=== PATIENT | female | born 1990 | race American Indian/Alaskan Native ===

== ENCOUNTER 2018-11-08 19:53 | Emergency (ER) | payer OTHER ==
--- NOTE | 2018-11-08 21:01 | Emergency Department Report ---
Chief Complaint: Chest Pain Stated Complaint: CHEST PAIN DIFFICULTY SWALLOWING Time Seen by Provider: 11/08/18 20:58 - HPI History of Present Illness: pt presents with right sided CP that began a couple of weeks ago describes it as a sharp pain no N/V mild SOB states she has been belching more no cough states she has also had difficulty in swallowing for several days having no difficulty swallowing secretions speaking with no difficulty denies sore throat no fever denies hx of GERD no PMHx no daily meds former smoker quit a couple months ago non drinker no drug use MSE screening note: Focused history and physical exam performed. Due to findings the following was ordered: CXR, EKG ED Disposition for MSE Condition: Stable
[2018-11-08 21:06] VITALS: BP 134/93
--- NOTE | 2018-11-08 21:48 | XRay Report ---
PROCEDURE: XR CHEST ROUTINE 2V TECHNIQUE: Chest 2 views HISTORY: CP COMPARISONS: FINDINGS: w cardiac and mediastinal contours are unremarkable. No focal pulmonary infiltrate identified. No ple ural fluid collections seen. Pulmonary vasculature is unremarkable. IMPRESSION: Negative two-view chest. This document is electronically signed by Duncan Garcia MD., November 08 2018 09:46:42 PM ET
[2018-11-09] MEDS ORDERED: IBUPROFEN PO ONE (00:43)
[2018-11-09] MEDS ORDERED: ZITHROMAX PO ONE (00:43)
[2018-11-09] MEDS ORDERED: DECADRON IM ONE (00:43)
--- NOTE | 2018-11-09 01:56 | Emergency Department Report ---
ED General Adult HPI - General Chief complaint: Chest Pain Stated complaint: CHEST PAIN DIFFICULTY SWALLOWING Time Seen by Provider: 11/08/18 20:58 Source: patient Mode of arrival: Ambulatory Limitations: No Limitations - History of Present Illness -: Gradual Time: 01:00 Location: buttocks Radiation: non-radiation Severity scale (0 -10): 2 Quality: aching Consistency: constant Improves with: none Worsens with: none Treatments Prior to Arrival: none - Related Data Previous Rx's Medication Instructions Recorded Last Taken Type Ibuprofen 800 mg PO TID PRN #30 tablet 11/09/18 Unknown Rx guaiFENesin [Robitussin] 200 mg PO BID #24 udc 11/09/18 Unknown Rx guaiFENesin [Robitussin] 200 mg PO Q6HR #30 tablet 11/09/18 Unknown Rx Allergies Allergy/AdvReac Type Severity Reaction Status Date / Time cefaclor [From [facility], 1928–1983] Allergy Hives Verified 11/08/18 19:57 ED Review of Systems ROS: Stated complaint: CHEST PAIN DIFFICULTY SWALLOWING Other details as noted in HPI Constitutional: denies: chills, fever Eyes: denies: eye pain, eye discharge, vision change ENT: denies: ear pain, throat pain Respiratory: denies: cough, shortness of breath, wheezing Cardiovascular: denies: chest pain, palpitations Endocrine: no symptoms reported Gastrointestinal: denies: abdominal pain, nausea, diarrhea Genitourinary: denies: urgency, dysuria, discharge Musculoskeletal: denies: back pain, joint swelling, arthralgia Skin: denies: rash, lesions Neurological: denies: headache, weakness, numbness, paresthesias, confusion, abnormal gait, vertigo Psychiatric: suicidal thoughts. denies: anxiety, depression, auditory hallucinations Hematological/Lymphatic: denies: easy bleeding, easy bruising ED Past Medical Hx - Past Medical History Previous Medical History?: No - Surgical History Past Surgical History?: No Additional Surgical History: x3,tonsillectomy - Social History Smoking Status: Never Smoker Substance Use Type: None - Medications Home Medications: Home Medications Medication Instructions Recorded Confirmed Last Taken Type Ibuprofen 800 mg PO TID PRN #30 tablet 11/09/18 Unknown Rx guaiFENesin [Robitussin] 200 mg PO BID #24 udc 11/09/18 Unknown Rx guaiFENesin [Robitussin] 200 mg PO Q6HR #30 tablet 11/09/18 Unknown Rx ED Physical Exam - General Limitations: No Limitations General appearance: alert, in no apparent distress - Head Head exam: Present: atraumatic, normocephalic - Eye Eye exam: Present: normal appearance - ENT ENT exam: Present: normal orophraynx, mucous membranes dry, mucous membranes moist - Neck Neck exam: Present: normal inspection, tenderness. Absent: meningismus, full ROM - Respiratory Respiratory exam: Present: normal lung sounds bilaterally, accessory muscle use. Absent: respiratory distress - Cardiovascular Cardiovascular Exam: Present: regular rate - GI/Abdominal GI/Abdominal exam: Present: soft, normal bowel sounds. Absent: tenderness, guarding, rebound, mass, bruit - Rectal Rectal exam: Present: deferred - Extremities Exam Extremities exam: Present: normal inspection, full ROM, tenderness, normal capillary refill. Absent: pedal edema, joint swelling, calf tenderness - Back Exam Back exam: Present: normal inspection, tenderness, CVA tenderness (L). Absent: CVA tenderness (R) - Neurological Exam Neurological exam: Present: alert, oriented X3, CN II-XII intact, normal gait, reflexes normal. Absent: motor sensory deficit - Psychiatric Psychiatric exam: Present: normal affect, normal mood, anxious - Skin Skin exam: Present: warm, dry, intact, normal color. Absent: rash ED Course Vital Signs 11/08/18 11/09/18 21:04 01:18 Temperature 98.2 F Pulse Rate 76 Respiratory 18 20 Rate Blood Pressure 134/93 O2 Sat by Pulse 100 Oximetry ED Medical Decision Making - EKG Data -: EKG Interpreted by Me EKG shows normal: sinus rhythm Rate: normal - EKG Data When compared to previous EKG there are: no significant change, changes noted Interpretation: no acute changes, normal EKG - Radiology Data Radiology results: pending, image reviewed normal lumbar exray no fracture no soft tissue damage, - Medical Decision Making This is a URI with chest wall pain plan ibuprofen cepachol, tessalone pearls, return to ed if symptoms worsen. tp verbalized agreement and understanding of same. Critical care attestation.: If time is entered above; I have spent that time in minutes in the direct care of this critically ill patient, excluding procedure time. ED Disposition Clinical Impression: URI (upper respiratory infection) Qualifiers: URI type: unspecified viral URI Qualified Code(s): J06.9 - Acute upper respiratory infection, unspecified Disposition: DC-01 TO HOME OR SELFCARE Is pt being admited?: No Does the pt Need Aspirin: No Condition: Stable Instructions: Upper Respiratory Infection (ED) Prescriptions: Ibuprofen 800 mg PO TID PRN #30 tablet PRN Reason: Anesthesia guaiFENesin [Robitussin] 200 mg PO BID #24 udc guaiFENesin [Robitussin] 200 mg PO Q6HR #30 tablet Referrals: ARUN KLINE MD [Primary Care Provider] - 2-3 Days (Flat needs to ge ) Forms: Work/School Release Form(ED) Time of Disposition: 02:19
== END 2018-11-09 02:32 | disposition home or self-care (01) ==
LOC: ED 19:53
DX: J06.9 Acute upper respiratory infection, unspecified (principal); Z88.8 Allergy status to other drugs, medicaments and biological substances; Z90.89 Acquired absence of other organs
CPT/HCPCS: 71046; 93005; 93010; 96372; 99283; J1100